=== PATIENT | female | born 1970 | race Caucasian/White ===

== ENCOUNTER 2019-06-24 07:10 | Emergency (ER) | payer OTHER ==
[~2019-06-24] VITALS: Ht 170.2 cm; Wt 71.4 kg
[2019-06-24 08:45] LABS: BASO % 0.8 % (0.0-1.0); EOS # 0.1 10^3/uL (0.0-0.50); EOS % 1.9 % (0.0-3.0); HEMATOCRIT 39.3 % (36.0-47.0); HEMOGLOBIN 13.1 g/dl (12.0-15.5); LYMPH # 1.3 10^3/uL (1.5-4.5); LYMPH % 24.9 % (24.0-44.0); MEAN CORPUSCULAR HEMOGLOBIN 31.3 pg (27.0-33.0); MEAN CORPUSCULAR HGB CONC 33.3 g/dl (32.0-36.5); MONO # 0.4 10^3/uL (0.0-0.8); MONO % 7.5 % (0.0-5.0); NEUTROPHILS # 3.4 10^3/uL (1.8-7.7); NEUTROPHILS % 64.1 % (36.0-66.0); PLATELET COUNT, AUTOMATED 206 10^3/uL (150-450); RED BLOOD COUNT 4.18 10^6/uL (4.00-5.40); WHITE BLOOD COUNT 5.3 10^3/uL (4.0-10.0)
[2019-06-24 08:57] LABS: INR 1.09; PROTHROMBIN TIME 13.8 SECONDS (11.8-14.0)
[2019-06-24 09:12] LABS: BLOOD UREA NITROGEN 11 MG/DL (7-18); GLUCOSE, FASTING 76 MG/DL (70-100)
[2019-06-24 09:13] LABS: ALT/SGPT 17 U/L (12-78); CALCIUM LEVEL 8.6 MG/DL (8.5-10.1); CARBON DIOXIDE LEVEL 29 MEQ/L (21-32); CHLORIDE LEVEL 106 MEQ/L (98-107); CREATININE FOR GFR 0.86 MG/DL (0.55-1.30); GLOMERULAR FILTRATION RATE > 60.0 (>58); POTASSIUM SERUM 3.9 MEQ/L (3.5-5.1); SODIUM LEVEL 141 MEQ/L (136-145)
[2019-06-24 09:14] LABS: ALBUMIN 3.7 GM/DL (3.2-5.2); BILIRUBIN,TOTAL 0.4 MG/DL (0.2-1.0); TOTAL PROTEIN 6.4 GM/DL (6.4-8.2)
--- NOTE | 2019-06-24 10:47 | REP ---
Head CT without contrast: History: Visual disturbance, dizziness. Comparison study: March 28, 2016. CT findings: Bone window settings demonstrate an intact bony calvarium. There is no evidence of skull fracture or incidental bony calvarial lesion. The visualized paranasal sinuses appear clear. No intraorbital abnormality is seen. On soft tissue window setting images; the lateral, third, and fourth ventricles are normal in size and position. Krueger-white differentiation pattern is normal above and below the tentorium. There are is no evidence of intracranial hemorrhage. No mass, edema, infarction, or midline shift is seen. No extra-axial fluid collection is appreciated. Impression: Negative noncontrast head CT. Electronically Signed by Jorge Chakraborty MD 06/24/2019 10:39 A
[2019-06-24 14:30] VITALS: BP 107/73
--- NOTE | 2019-06-24 14:30 | REP ---
MRI of the brain without contrast. Clinical indication: Dizzy, visual disturbance. Comparison: CT head without contrast 06/24/2019. Technique: MRI of the brain without contrast was performed utilizing sagittal T1 FLAIR, and axial diffusion weighted imaging, T2, T1, FLAIR and GRE imaging. Findings: There is no restricted diffusion to suggest acute ischemia or infarction. The ventricles and sulci are symmetric. There is no mass effect, midline shift or basal cistern effacement. There is no extra-axial fluid collection. There is no evidence of hemorrhage. The visualized flow voids are patent. The orbital contents are intact. The visualized paranasal sinuses and mastoid air cells are aerated. Impression: Normal MRI of the brain without contrast. Electronically Signed by Tiera Lima MD 06/24/2019 05:56 P
--- NOTE | 2019-06-24 14:32 | REP ---
MRA OF THE BRAIN WITHOUT CONTRAST: Clinical indication: Dizzy, visual disturbance. Comparison: Correlation is made to MRI brain of the same day. Technique: MRA of the brain was performed without contrast. 2D imaging and MIP reconstructions were provided. Findings: The distal ICAs, proximal MCAs, and ACAs are patent. There are patent posterior communicating arteries bilaterally. The distal vertebral arteries, basilar artery and gravel inspector are patent. There is no significant cerebrovascular stenosis or aneurysmal formation. Impression: Normal MRA of the brain without contrast. Electronically Signed by Tiera Lima MD 06/24/2019 06:04 P
[2019-06-24] MEDS ORDERED: MECL-68 PO (14:44)
--- NOTE | 2019-06-25 05:58 | ECGEPIP ---
[facility] - ED Test Date: 2019-06-24 Pat Name: WEI HOLM Department: Room: - Gender: Female Ext Js Developer: RADHA : 1970 Requested By: Maryjo Álvarez Order Number: [id number] Reading MD: Tulio Draper Measurements Intervals [place] Rate: 66 P: 71 VT: 158 QRS: -1 QRSD: 99 T: 17 QT: 422 QTc: 443 Interpretive Statements SINUS RHYTHM LOW QRS VOLTAGE IN PRECORDIAL LEADS INCOMPLETE RIGHT BUNDLE BRANCH BLOCK SIMILAR TO 03/28/16 Electronically Signed on 06-25-2019 5:57:59 EDT by Tulio Draper
== END 2019-06-24 14:55 | disposition home or self-care (01) ==
LOC: M ED 07:10
DX: R42 Dizziness and giddiness (principal); I45.19 Other right bundle-branch block; Z82.49 Family history of ischemic heart disease and other diseases of the circulatory system; Z83.3 Family history of diabetes mellitus; Z88.0 Allergy status to penicillin

== ENCOUNTER → 2019-09-17 | Outpatient (REF) | payer OTHER ==
[~2019-09-17] MED LIST: MECL-68 PO
[2019-09-17 14:06] LABS: BASO % 0.8 % (0.0-1.0); EOS # 0.1 10^3/uL (0.0-0.5); EOS % 2.4 % (0.0-3.0); HEMATOCRIT 40.1 % (36.0-47.0); HEMOGLOBIN 12.8 g/dl (12.0-15.5); LYMPH # 1.3 10^3/uL (1.5-5.0); LYMPH % 33.3 % (24.0-44.0); MEAN CORPUSCULAR HEMOGLOBIN 30.4 pg (27.0-33.0); MEAN CORPUSCULAR HGB CONC 31.9 g/dl (32.0-36.5); MEAN CORPUSCULAR VOLUME 95.2 fl (80.0-96.0); MONO # 0.3 10^3/uL (0.0-0.8); MONO % 6.8 % (0.0-5.0); NEUTROPHILS # 2.2 10^3/uL (1.5-8.5); NEUTROPHILS % 56.4 % (36.0-66.0); PLATELET COUNT, AUTOMATED 266 10^3/uL (150-450); RED BLOOD COUNT 4.21 10^6/uL (4.00-5.40); WHITE BLOOD COUNT 3.8 10^3/uL (4.0-10.0)
[2019-09-17 14:19] LABS: ALBUMIN 3.9 GM/DL (3.2-5.2); ALT/SGPT 17 U/L (12-78); BILIRUBIN,TOTAL 0.4 MG/DL (0.2-1.0); BLOOD UREA NITROGEN 9 MG/DL (7-18); CALCIUM LEVEL 8.8 MG/DL (8.5-10.1); CARBON DIOXIDE LEVEL 29 MEQ/L (21-32); CHLORIDE LEVEL 108 MEQ/L (98-107); CHOLESTEROL LEVEL 167 MG/DL (<200); CHOLESTEROL RISK RATIO 2.492 (<5); CREATININE FOR GFR 0.86 MG/DL (0.55-1.30); FREE T4 0.95 NG/DL (0.76-1.46); GLOMERULAR FILTRATION RATE > 60.0 (>58); GLUCOSE, FASTING 82 MG/DL (70-100); HDL CHOLESTEROL 67 MG/DL (>40); LDL CHOLESTEROL 89 MG/DL (<100); NON-HDL-C 100 MG/DL; POTASSIUM SERUM 4.1 MEQ/L (3.5-5.1); SODIUM LEVEL 141 MEQ/L (136-145); THYROID STIMULATING HORMONE 0.946 uIU/ML (0.358-3.740); TOTAL PROTEIN 6.9 GM/DL (6.4-8.2); TRIGLYCERIDES LEVEL 57 MG/DL (<150)
[2019-09-17 14:21] LABS: HEMOGLOBIN A1c 5.1 %; TOTAL 25(OH) VITAMIN D 40.9 NG/ML (30.0-100.0)
== END ==
LOC: M LABDRAW1 13:43
PROVIDERS: ATTEND Nurse Practitioner Family
DX: Z00.01 Encounter for general adult medical examination with abnormal findings (principal)

== ENCOUNTER 2020-06-03 13:47 | Emergency (ER) | payer OTHER ==
[~2020-06-03 13:47] MED LIST changes: -MECL-68 PO; +MECL1TAB31 PO
[2020-06-03] MEDS ORDERED: cefTRIAXone SOD 1GM VIAL (J0696 PER 250MG) As Ordered ONE (14:36)
[2020-06-30 13:01] LABS: BASO % 0.5 % (0.0-1.0); EOS # 0.1 10^3/uL (0.0-0.5); EOS % 1.1 % (0.0-3.0); HEMATOCRIT 38.2 % (36.0-47.0); HEMOGLOBIN 12.9 g/dl (12.0-15.5); LYMPH # 1.4 10^3/uL (1.5-5.0); LYMPH % 22.5 % (24.0-44.0); MEAN CORPUSCULAR HEMOGLOBIN 31.5 pg (27.0-33.0); MEAN CORPUSCULAR HGB CONC 33.8 g/dl (32.0-36.5); MEAN CORPUSCULAR VOLUME 93.4 fl (80.0-96.0); MONO # 0.4 10^3/uL (0.0-0.8); MONO % 6.2 % (0.0-5.0); NEUTROPHILS # 4.3 10^3/uL (1.5-8.5); NEUTROPHILS % 69.4 % (36.0-66.0); PLATELET COUNT, AUTOMATED 228 10^3/uL (150-450); RED BLOOD COUNT 4.09 10^6/uL (4.00-5.40); WHITE BLOOD COUNT 6.1 10^3/uL (4.0-10.0)
[2020-06-30 14:08] LABS: APPEARANCE, URINE CLEAR (CLEAR); BACTERIA, URINE AUTO NEGATIVE (NEGATIVE); BILIRUBIN, URINE AUTO NEGATIVE (NEGATIVE); BLOOD, URINE BLOOD NEGATIVE (NEGATIVE); COLOR, URINE COLORLESS (YELLOW); GLUCOSE, URINE (UA) AUTO NEGATIVE (NEGATIVE); KETONE, URINE AUTO NEGATIVE (NEGATIVE); LEUKOCYTE ESTERASE, URINE AUTO 1+ (NEGATIVE); NITRITE, URINE AUTO NEGATIVE (NEGATIVE); PROTEIN, URINE AUTO NEGATIVE (NEGATIVE); RBC, URINE AUTO 0 /HPF (0-3); SPECIFIC GRAVITY URINE AUTO 1.002 (1.002-1.035); SQUAMOUS EPITHELIAL CELL UR AU 0 /HPF (0-6); UROBILINOGEN, URINE AUTO 0.2 mg/dL (0.0-2.0); WBC, URINE AUTO 7 /HPF (0-3)
[2020-07-07 07:26] LABS: GLUCOSE, FASTING 90 MG/DL (70-100)
[2020-07-07 07:27] LABS: BLOOD UREA NITROGEN 12 MG/DL (7-18)
[2020-07-07 07:28] LABS: CALCIUM LEVEL 8.2 MG/DL (8.5-10.1); CARBON DIOXIDE LEVEL 28 mmol/L (20-29); CHLORIDE LEVEL 107 MEQ/L (98-107); CREATININE FOR GFR 0.79 MG/DL (0.55-1.30); GLOMERULAR FILTRATION RATE > 60.0 (>58); POTASSIUM SERUM 4.2 MEQ/L (3.5-5.1); SODIUM LEVEL 140 MEQ/L (136-145)
== END 2020-06-03 16:25 | disposition home or self-care (01) ==
LOC: M ED 13:47
DX: N30.01 Acute cystitis with hematuria (principal); Z88.0 Allergy status to penicillin
CPT/HCPCS: 36415; 76775; 80048; 81001; 85025; 87086; 99283; J0696

== ENCOUNTER 2020-10-25 22:23 | Emergency (ER) | payer OTHER ==
[~2020-10-25] VITALS: Ht 170.2 cm; Wt 75.9 kg
[2020-10-25] MEDS ORDERED: CLIN300C6 (22:33)
[2020-10-26] MEDS ORDERED: diphenhydrAMINE 50MG CAP PO ONE (00:15)
[2020-10-26 00:24] VITALS: BP 125/72
[2020-10-26] MEDS ORDERED: BENA25TA5 PO (09:23)
[2020-10-26] MEDS ORDERED: MEDR4PAK PO (11:22)
== END 2020-10-26 00:26 | disposition home or self-care (01) ==
LOC: M ED 22:23
DX: R22.0 Localized swelling, mass and lump, head (principal); L53.9 Erythematous condition, unspecified; T36.8X5A Adverse effect of other systemic antibiotics, initial encounter; H81.90 Unspecified disorder of vestibular function, unspecified ear; Z88.0 Allergy status to penicillin

== ENCOUNTER 2020-10-26 09:13 | Emergency (ER) | payer OTHER ==
[~2020-10-26] VITALS: Ht 170.2 cm; Wt 75.1 kg
[~2020-10-26 09:13] MED LIST changes: +CLIN300C6
[2020-10-26] MEDS ORDERED: BENA25TA5 PO (09:23)
[2020-10-26] MEDS ORDERED: methylPREDNISolone 125MG 2ML VIAL IV ONE (09:45)
[2020-10-26] MEDS ORDERED: diphenhydrAMINE 50MG/ML VIAL (J1200) IV ONE (09:45)
[2020-10-26] MEDS ORDERED: NS 1,000 ML IV ONE (09:45)
[2020-10-26 10:35] LABS: BLOOD UREA NITROGEN 12 MG/DL (7-18); CALCIUM LEVEL 8.6 MG/DL (8.5-10.1); CARBON DIOXIDE LEVEL 29 MEQ/L (21-32); CHLORIDE LEVEL 106 MEQ/L (98-107); CREATININE FOR GFR 0.84 MG/DL (0.55-1.30); GLOMERULAR FILTRATION RATE > 60.0 (>58); GLUCOSE, FASTING 94 MG/DL (70-100); POTASSIUM SERUM 3.8 MEQ/L (3.5-5.1); SODIUM LEVEL 140 MEQ/L (136-145)
[2020-10-26 10:50] LABS: BASO % 0.4 % (0.0-1.0); EOS # 0.1 10^3/uL (0.0-0.5); EOS % 2.4 % (0.0-3.0); HEMATOCRIT 39.1 % (36.0-47.0); HEMOGLOBIN 12.6 g/dl (12.0-15.5); LYMPH # 0.8 10^3/uL (1.5-5.0); LYMPH % 17.7 % (24.0-44.0); MEAN CORPUSCULAR HEMOGLOBIN 29.9 pg (27.0-33.0); MEAN CORPUSCULAR HGB CONC 32.2 g/dl (32.0-36.5); MEAN CORPUSCULAR VOLUME 92.7 fl (80.0-96.0); MONO # 0.5 10^3/uL (0.0-0.8); NEUTROPHILS # 3.2 10^3/uL (1.5-8.5); NEUTROPHILS % 69.1 % (36.0-66.0); PLATELET COUNT, AUTOMATED 236 10^3/uL (150-450); RED BLOOD COUNT 4.22 10^6/uL (4.00-5.40); WHITE BLOOD COUNT 4.6 10^3/uL (4.0-10.0)
[2020-10-26 11:10] LABS: ERYTHROCYTE SEDIMENTATION RATE 7 mm/hr (0-20)
[2020-10-26] MEDS ORDERED: MEDR4PAK PO (11:22)
[2020-10-26 12:50] VITALS: BP 120/70
== END 2020-10-26 12:53 | disposition home or self-care (01) ==
LOC: M ED 09:13
DX: L53.9 Erythematous condition, unspecified (principal); T36.8X5A Adverse effect of other systemic antibiotics, initial encounter; Z88.0 Allergy status to penicillin
CPT/HCPCS: 80048; 85025; 85652; 86140; 96361; 96374; 96375; 99284; J1200; J2930

== ENCOUNTER → 2022-01-09 | Outpatient (CLI) | payer OTHER ==
[~2022-01-09] MED LIST changes: +BENA25TA5 PO; +CLIN-250; -CLIN300C6; +MEDR4PAK PO
== END ==
LOC: M WHC 08:56
PROVIDERS: ATTEND Obstetrics & Gynecology
DX: N63.20 Unspecified lump in the left breast, unspecified quadrant (principal)

== ENCOUNTER → 2022-01-15 | Outpatient (CLI) | payer OTHER ==
[~2022-01-15] MED LIST changes: +**SFHN** LIDOCAINE 1% MDV 20ML VIAL ONE; +**SFHN** SODIUM BICARBONATE 8.4% 50MEQ 50ML VIAL ONE; +FLON1SPR NARES
[2022-01-15 11:44] VITALS: BP 106/70
== END ==
LOC: M WHCPRO 10:06
PROVIDERS: ATTEND Obstetrics & Gynecology
DX: D24.2 Benign neoplasm of left breast (principal); N63.0 Unspecified lump in unspecified breast
CPT/HCPCS: 19083; 77065; 88305; G0279

== ENCOUNTER → 2022-11-24 | Outpatient (CLI) | payer OTHER ==
[~2022-11-24] MED LIST changes: -**SFHN** LIDOCAINE 1% MDV 20ML VIAL ONE; -**SFHN** SODIUM BICARBONATE 8.4% 50MEQ 50ML VIAL ONE
[2022-11-24 10:06] LABS: HEMATOCRIT 40.4 % (36.0-47.0); HEMOGLOBIN 13.3 g/dl (12.0-15.5); MEAN CORPUSCULAR HEMOGLOBIN 30.7 pg (27.0-33.0); MEAN CORPUSCULAR HGB CONC 32.9 g/dl (32.0-36.5); MEAN CORPUSCULAR VOLUME 93.3 fl (80.0-96.0); PLATELET COUNT, AUTOMATED 244 10^3/uL (150-450); RED BLOOD COUNT 4.33 10^6/uL (4.00-5.40); WHITE BLOOD COUNT 4.9 10^3/uL (4.0-10.0)
[2022-11-24 10:31] LABS: CHOLESTEROL RISK RATIO 2.84 (<5); HDL CHOLESTEROL 63.7 MG/DL (>40); LDL CHOLESTEROL 98.5 MG/DL (<100)
[2022-11-24 10:33] LABS: THYROID STIMULATING HORMONE 1.402 uIU/ML (0.55-4.78)
== END ==
LOC: M LAB 09:44
PROVIDERS: ATTEND Physician Assistant
DX: Z13.220 Encounter for screening for lipoid disorders (principal)

== ENCOUNTER → 2023-01-22 | Outpatient (CLI) | payer OTHER | LOC: M WHC 14:33 | PROVIDERS: ATTEND Physician Assistant | DX: Z12.31 Encounter for screening mammogram for malignant neoplasm of breast (principal) ==

== ENCOUNTER 2023-05-08 08:15 | Emergency (ER) | payer OTHER ==
[~2023-05-08] VITALS: Ht 170.2 cm; Wt 69.1 kg
[2023-05-08 08:48] LABS: BASO % 0.4 % (0.0-1.0); EOS # 0.1 10^3/uL (0.0-0.5); EOS % 2.8 % (0.0-3.0); HEMATOCRIT 39.2 % (36.0-47.0); MEAN CORPUSCULAR HEMOGLOBIN 30.2 pg (27.0-33.0); MEAN CORPUSCULAR HGB CONC 33.2 g/dl (32.0-36.5); MONO # 0.4 10^3/uL (0.0-0.8); MONO % 8.1 % (2.0-8.0); NEUTROPHILS # 2.4 10^3/uL (1.5-8.5); NEUTROPHILS % 48.3 % (36.0-66.0); PLATELET COUNT, AUTOMATED 227 10^3/uL (150-450); RED BLOOD COUNT 4.31 10^6/uL (4.00-5.40); WHITE BLOOD COUNT 4.9 10^3/uL (4.0-10.0)
[2023-05-08 09:15] LABS: LIPASE 25 U/L (12-53)
[2023-05-08 09:17] LABS: ALBUMIN 3.8 G/DL (3.2-5.2); ALKALINE PHOSPHATASE 95 U/L (46-116); ALT/SGPT 13 U/L (7.0-40); AST/SGOT 11 U/L (<34); BILIRUBIN,DIRECT < 0.1 MG/DL (<0.4); BILIRUBIN,TOTAL 0.3 MG/DL (0.3-1.2); BLOOD UREA NITROGEN 18 MG/DL (9-23); CALCIUM LEVEL 9.8 MG/DL (8.5-10.1); CARBON DIOXIDE LEVEL 27 MMOL/L (20-31); CHLORIDE LEVEL 108 MMOL/L (98-107); CREATININE FOR GFR 0.82 MG/DL (0.55-1.30); GLOMERULAR FILTRATION RATE > 60.0 (>51); GLUCOSE, FASTING 90 MG/DL (60-100); POTASSIUM SERUM 3.9 MMOL/L (3.5-5.1); SODIUM LEVEL 139 MMOL/L (136-145)
[2023-05-08 11:23] LABS: CK-MB VALUE MASS 1.1 NG/ML (<3.6)
[2023-05-08 11:24] LABS: MB/CK RELATIVE INDEX 0.89 (< OR =4)
[2023-05-08] MEDS ORDERED: NS 1,000 ML IV ONE (12:50)
[2023-05-08] MEDS ORDERED: ISOVUE-370 76% 100ML VIAL As Ordered ONE (12:53)
[2023-05-08] MEDS ORDERED: OMEP1CAP73 PO (14:13)
[2023-05-08 14:52] VITALS: BP 116/81; TEMP 96.9; O2SAT 100
== END 2023-05-08 14:55 | disposition home or self-care (01) ==
LOC: M ED 08:15
DX: K21.9 Gastro-esophageal reflux disease without esophagitis (principal); R10.11 Right upper quadrant pain; R42 Dizziness and giddiness; Z90.49 Acquired absence of other specified parts of digestive tract; Z88.1 Allergy status to other antibiotic agents
CPT/HCPCS: 71046; 71275; 74018; 74177; 76705; 80048; 80076; 82550; 82553; 83690; 84484; 85025; 93005; 96360; 99284; Q9967

== ENCOUNTER 2023-06-19 06:46 | Day surgery (SDC) | payer OTHER ==
[~2023-06-19] VITALS: Ht 170.2 cm; Wt 70.2 kg
[~2023-06-19 06:46] MED LIST changes: +NS 1,000 ML IV ONE; +OMEP1CAP73 PO
[2023-06-19 07:52] VITALS: TEMP 97.1
[2023-06-19 08:05] VITALS: BP 103/55; O2SAT 98
== END 2023-06-19 08:05 | disposition home or self-care (01) ==
LOC: M OPP 06:46
PROVIDERS: ATTEND Surgery
DX: Z12.11 Encounter for screening for malignant neoplasm of colon (principal); Z88.1 Allergy status to other antibiotic agents

== ENCOUNTER → 2024-04-08 | Outpatient (CLI) | payer OTHER ==
[~2024-04-08] MED LIST changes: +MECL-209 PO; -MECL1TAB31 PO; -NS 1,000 ML IV ONE
== END ==
LOC: M WHC 13:49
PROVIDERS: ATTEND Nurse Practitioner Family
DX: Z12.31 Encounter for screening mammogram for malignant neoplasm of breast (principal)

== ENCOUNTER → 2024-04-08 | Outpatient (REF) | payer OTHER | LOC: M SFHCWAGY 17:35 | PROVIDERS: ATTEND Nurse Practitioner Family | DX: Z12.4 Encounter for screening for malignant neoplasm of cervix (principal); Z11.51 Encounter for screening for human papillomavirus (HPV) ==

== ENCOUNTER → 2024-06-16 | Outpatient (CLI) | payer OTHER | LOC: M WUC 13:52 | PROVIDERS: ATTEND Nurse Practitioner Family | DX: M25.532 Pain in left wrist (principal) ==